=== PATIENT | male | born 1945 | race Caucasian/White ===

== ENCOUNTER 2018-04-22 10:10 | Outpatient (CLI) | payer OTHER ==
[~2018-04-22] VITALS: Ht 162.6 cm; Wt 66.2 kg
[2018-04-22] MEDS ORDERED: albuterol 2.5 MG/3 ML nebule NEB ONE (11:10)
== END 2018-04-22 23:59 | disposition home or self-care (01) ==
LOC: RT 10:10
PROVIDERS: ATTEND Internal Medicine Pulmonary Disease
DX: J45.998 Other asthma (principal); R06.09 Other forms of dyspnea; Z79.899 Other long term (current) drug therapy
CPT/HCPCS: 85018; 94060; 94727; 94729; 94760